=== PATIENT | male | born 2000 | race Caucasian/White ===

== ENCOUNTER 2022-10-26 19:55 | Emergency (ER) | payer BC ==
[~2022-10-26] VITALS: Ht 170.2 cm; Wt 90.3 kg
[2022-10-26 20:08] VITALS: BP 125/77
--- NOTE | 2022-10-26 20:11 | NUR ---
to lobby a/w bed ambulatory
[2022-10-26] MEDS ORDERED: ONDANSETRON 4 MG ODT PO ONE (21:10)
[2022-10-26] MEDS ORDERED: FAMOTIDINE 20 MG TAB PO SCH (21:10)
[2022-10-26] MEDS ORDERED: NACL 0.9% 1,000 ML IV ONE (21:45)
[2022-10-26] MEDS ORDERED: ONDA-188 PO (22:00)
[2022-10-26] MEDS ORDERED: FAMO-90 PO (22:00)
[2022-10-26] MEDS ORDERED: ONDANSETRON 4 MG ODT ONE (22:23)
[2022-10-26 22:30] VITALS: BP 120/75
--- NOTE | 2022-10-26 22:30 | NUR ---
vomiting since last night, bodyache
--- NOTE | 2022-10-26 22:32 | NUR ---
Patient discharged with v/s stable by ermd. Written and verbal after care instructions given and explained. Patient alert, oriented and verbalized understanding of instructions. Ambulatory with steady gait. All questions addressed prior to discharge. ID band removed. Patient advised to follow up with PMD. Rx pepcid 20mg PO, zofran odt 4mg po of given. Patient educated on indication of medication including possible reaction and side effects. Opportunity to ask questions provided and answered.
== END 2022-10-26 22:32 | disposition home or self-care (01) ==
LOC: MED 19:55
DX: R11.2 Nausea with vomiting, unspecified (principal); R10.13 Epigastric pain; M79.10 Myalgia, unspecified site
CPT/HCPCS: 99283; Q0162